=== PATIENT | male | born 1985 ===

== ENCOUNTER 2018-12-21 01:09 | Inpatient (IN) | payer SELFPAY ==
[2018-12-21] MEDS ORDERED: Ketamine 50 MG/ML (10ML VIAL) ONE ×2 (01:16→02:59)
[2018-12-21] MEDS ORDERED: Adacel (T-DAP) 0.5 ML SYRINGE ONE (01:23)
[2018-12-21 01:25] LABS: #Basophils 0.1 thou/uL (0.0-0.2); #Eosinphils 0.1 thou/uL (0.0-0.7); #Lymphocytes 3.1 thou/uL (1.20-3.40); #Monocytes 0.7 thou/uL (0.11-0.59); #Neutrophils 5.6 thou/uL (1.40-6.50); %Basophils 0.8 % (0.0-1.0); %Eosinophils 0.8 % (0.0-10.0); %Lymphocytes 32.1 % (21.0-51.0); %Monocytes 7.6 % (0.0-10.0); %Neutrophils 58.6 % (42.0-75.0); Hemoglobin 15.8 g/dL (14.0-18.0); Mean Corpuscular Hemoglobin 33.5 pg (27.0-31.0); Mean Corpuscular Volume 98.6 fL (78.0-98.0); Mean Platelet Volume 7.7 fL (7.4-10.4); Platelet Count 239 thou/uL (130-400); Red Blood Cell (RBC) Count 4.72 mill/uL (4.70-6.10); White Blood Cell (WBC) Count 9.5 thou/uL (4.8-10.8)
[2018-12-21 01:45] LABS: ALT (SGPT) 26 U/L (8-55); AST (SGOT) 24 U/L (5-34); Albumin 4.5 g/dL (3.5-5.0); Alkaline Phosphatase 63 U/L (40-150); Anion Gap 17 mmol/L (10-20); BUN (Urea Nitrogen) 11 mg/dL (8.9-20.6); Bilirubin, Total 0.2 mg/dL (0.2-1.2); Calc. Creatinine Clearance 0 mL/min (70-130); Calcium 8.8 mg/dL (7.8-10.44); Carbon Dioxide 18 mmol/L (22-29); Chloride 105 mmol/L (98-107); Estimated GFR-MDRD Greater than 90; Globulin 2.6 g/dL (2.4-3.5); Glucose 103 mg/dL (70-105); Potassium 3.2 mmol/L (3.5-5.1); Protein, Total 7.1 g/dL (6.0-8.3); Sodium 137 mmol/L (136-145)
[2018-12-21 01:46] LABS: Acetaminophen Less than 6.0 mcg/mL (10.0-30.0); Alcohol 299 mg/dL (Less than 10); Lipase 64 U/L (8-78); Salicylate Less than 8.0 mg/dL (15.0-30.0)
[2018-12-21 02:03] LABS: Bilirubin Negative (Negative); Blood, Urine Small (Negative); Clarity CLEAR (Clear); Glucose, Urine (Dipstick) Negative (Negative); Leukocyte Negative (Negative); Nitrite Negative (Negative); Protein, Urine (Dipstick) Negative (Neg-Trace); Urobilinogen 0.2 mg/dL (0.2-1.0); pH, Urine 5.5 (5.0-9.0)
[2018-12-21 02:05] LABS: Pathc Cast-AUWi Flag 0.13 (0-2.49)
[2018-12-21] MEDS ORDERED: Lidocaine 1% w/Epinephrine 1:100K 20 ML VIAL ONE (02:11)
[2018-12-21 02:14] LABS: RBC/HPF None Seen HPF (0-3); Squamous Epithelial 0-3 HPF (0-3); WBC/HPF None Seen HPF (0-3)
[2018-12-21 02:15] LABS: Bacteria/HPF None Seen HPF (None Seen); Crystals/HPF None Seen HPF (Negative); Hyaline Casts/LPF NONE SEEN LPF (0-3 Hyaline); Renal Epithelial None Seen HPF (0-3); Transitional Epithelial NONE SEEN HPF (0-3); Yeast-All Forms None Seen HPF (None Seen)
[2018-12-21 02:18] LABS: Amphetamine Not Detected (NotDetected); Barbiturates Screen Not Detected (NotDetected); Benzodiazepine Screen Not Detected (NotDetected); Cocaine Metabolite Screen Not Detected (NotDetected); Medtox Control Line Valid? VALID (VALID); Medtox Reader # READER 1; Methadone Not Detected (NotDetected); Methamphetamine Not Detected (NotDetected); Opiate Screen Not Detected (NotDetected); Oxycodone Screen Not Detected (NotDetected); Phencyclidine (PCP) Not Detected (NotDetected); THC/Cannabinoid Screen Not Detected (NotDetected); Tricyclic Screen Not Detected (NotDetected)
[2018-12-21] MEDS ORDERED: Dextrose 50% Abboject 50 ML SYRINGE SLOW IVP PRN (03:03)
[2018-12-21] MEDS ORDERED: Ondansetron PF 4 MG/2 ML Vial IVP PRN (03:03)
[2018-12-21] MEDS ORDERED: Promethazine HCl 25 MG/ML VIAL IM PRN (03:03)
[2018-12-21] MEDS ORDERED: hydrALAZINE 20 MG/ML VIAL SLOW IVP PRN (03:03)
[2018-12-21] MEDS ORDERED: Dextrose 5% in Water 1,000 ML IV PRN (03:03)
[2018-12-21] MEDS ORDERED: Ondansetron ODT 4 MG TAB PO PRN (03:03)
[2018-12-21] MEDS ORDERED: traMADol HCl 50 MG TAB PO PRN (03:11)
[2018-12-21 03:50] VITALS: BMI 29.7
[2018-12-21] MEDS ORDERED: Potassium Phosphate 15 MMOL in Sodium Chloride 0.9% 250 ML 250 ML IVPB SCH (04:00)
[2018-12-21] MEDS ORDERED: Multivitamins, Adult 10 ML, Folic Acid 1 MG, Thiamine HCl 100 MG in Dextrose 5 %-0.45 %... IV SCH (04:00)
[2018-12-21] MEDS ORDERED: Acetaminophen 500 MG TAB PO SCH (06:00)
[2018-12-21] MEDS ORDERED: traMADol HCl 50 MG TAB PO SCH (06:00)
--- NOTE | 2018-12-21 07:50 | RAD ---
THREE VIEWS LEFT FOOT: HISTORY: Pain. Trauma. FINDINGS: Lisfranc alignment is maintained. Joint spaces are preserved. No fracture. No cortical irregularit y or periosteal reaction. IMPRESSION: No posttraumatic change. POS: OFF
--- NOTE | 2018-12-21 07:51 | RAD ---
TWO VIEWS LEFT KNEE: HISTORY: Pain, trauma. COMPARISON: None. FINDINGS: Joint space is preserved. No fracture or malalignment. No joint effusion. IMPRESSION: Unremarkable 2 views left knee. POS: OFF
[2018-12-21 08:54] LABS: #Basophils 0.1 thou/uL (0.0-0.2); #Lymphocytes 2.2 thou/uL (1.20-3.40); #Monocytes 0.9 thou/uL (0.11-0.59); #Neutrophils 12.3 thou/uL (1.40-6.50); %Basophils 0.5 % (0.0-1.0); %Eosinophils 0.2 % (0.0-10.0); %Lymphocytes 14.4 % (21.0-51.0); %Monocytes 5.8 % (0.0-10.0); %Neutrophils 79.2 % (42.0-75.0); Hemoglobin 16.3 g/dL (14.0-18.0); Mean Corpuscular HGB CONC 34.3 g/dL (32.0-36.0); Mean Corpuscular Hemoglobin 33.4 pg (27.0-31.0); Mean Corpuscular Volume 97.2 fL (78.0-98.0); Mean Platelet Volume 7.8 fL (7.4-10.4); Platelet Count 253 thou/uL (130-400); RBC Distribution Width 12.1 % (11.5-14.5); Red Blood Cell (RBC) Count 4.88 mill/uL (4.70-6.10); White Blood Cell (WBC) Count 15.5 thou/uL (4.8-10.8)
[2018-12-21] MEDS ORDERED: Famotidine/PF 20 mg/2ml Vial SLOW IVP SCH (09:00)
[2018-12-21 09:16] LABS: Magnesium 2.4 mg/dL (1.6-2.6); Phosphorus 3.6 mg/dL (2.3-4.7)
[2018-12-21 09:17] LABS: Alcohol 146 mg/dL (Less than 10); Anion Gap 15 mmol/L (10-20); BUN (Urea Nitrogen) 8 mg/dL (8.9-20.6); Calc. Creatinine Clearance 171 mL/min (70-130); Carbon Dioxide 21 mmol/L (22-29); Chloride 110 mmol/L (98-107); Estimated GFR-MDRD Greater than 90; Glucose 94 mg/dL (70-105); Sodium 142 mmol/L (136-145)
--- NOTE | 2018-12-21 09:43 | CT ---
HEAD CT NONCONTRAST: INDICATION: Intracranial hemorrhage, fall. FINDINGS: There remains a small volume of extraaxial hemorrhage along the interhemispheric falx without associa kami mass effect or midline shift. No ventriculomegaly. Right frontal scalp contusion/hematoma is pr esent. There is decreased pneumatization of the left mastoid air cells. IMPRESSION: Stable small volume extraaxial hemorrhage along the interhemispheric falx. POS: [facility]
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
[2018-12-21] MEDS ORDERED: ISOVUE-370 76%-LOCM 1 ML ONE (10:54)
--- NOTE | 2018-12-21 11:22 | PRG ---
DATE OF SERVICE: 12/21/2018 I followed up on Mr. Lin's second CT scan of the brain. There is hyperdensity in the interhemispheric fissure. Likely subarachnoid anteriorly and subdural superiorly. The total volume is exceedingly small. It does not appreciably changed between the two scans. I do not think he needs any more scanning. We will see him in the office in 2 to 3 weeks with a followup CT. He does not require neurosurgical intervention. He should refrain from alcohol and drugs. If he gets a headache during physical exertion, he should stop that exertion. He should not use bed rest as a treatment for his head injury, however. Job ID: [id number]
--- NOTE | 2018-12-21 11:29 | PDOC.GSPN ---
Surgery Progress Note: Subj - Subjective Patient reports: no new complaints (Awake and alert, following commands. wants to go home) Surgery Progress Note: Obj - Vital signs Vital signs: Vital Signs - Most Recent Temp Pulse Resp BP Pulse Ox 97.8 F 91 L 12/21/18 04:00 12/21/18 08:00 - Physical Exam General: no distress, other (oriented to person place and time. GCS 15) Cardiovascular: regular rate and rhythm Respiratory: clear to auscultation Abdomen: soft, non tender Surgery Progress Note: Results - Labs Result Diagrams: 12/21/18 08:43 12/21/18 08:43 Lab results: Laboratory Results - last 24 hr 12/21/18 12/21/18 12/21/18 01:17 01:17 01:17 WBC 9.5 RBC 4.72 Hgb 15.8 Hct 46.6 MCV 98.6 H MCH 33.5 H MCHC 34.0 RDW 12.0 Plt Count 239 MPV 7.7 Neutrophils % 58.6 Lymphocytes % 32.1 Monocytes % 7.6 Eosinophils % 0.8 Basophils % 0.8 Neutrophils # 5.6 Lymphocytes # 3.1 Monocytes # 0.7 H Eosinophils # 0.1 Basophils # 0.1 Sodium 137 Potassium 3.2 L Chloride 105 Carbon Dioxide 18 L Anion Gap 17 BUN 11 Creatinine 0.84 Estimated GFR (MDRD) Greater than 90 Glucose 103 Calcium 8.8 Phosphorus Magnesium Total Bilirubin 0.2 AST 24 ALT 26 Alkaline Phosphatase 63 Serum Total Protein 7.1 Albumin 4.5 Globulin 2.6 Albumin/Globulin Ratio 1.7 Lipase 64 Urine Color Urine Clarity Urine pH Ur Specific [place] Urine Protein Urine Glucose (UA) Urine Ketones Urine Blood Urine Nitrite Urine Bilirubin Urine Urobilinogen Ur Leukocyte Esterase Urine RBC Urine WBC Ur Squamous Epith Cells Ur Transition Epith Cell Ur Renal Epithelial Cell Urine Crystals Urine Bacteria Hyaline Casts Urine Yeast Salicylates Less than 8.0 L Urine Opiates Screen Ur Oxycodone Screen Urine Methadone Screen Ur Propoxyphene Screen Acetaminophen Less than 6.0 L Ur Barbiturates Screen Ur Tricyclics Screen Ur Phencyclidine Scrn Ur Amphetamines Screen U Methamphetamines Scrn U Benzodiazepines Scrn U Cocaine Metab Screen U Cannabinoids Screen Drug Screen Comment Plasma Alcohol 299 H 12/21/18 12/21/18 12/21/18 01:50 01:50 08:43 WBC RBC Hgb Hct MCV MCH MCHC RDW Plt Count MPV Neutrophils % Lymphocytes % Monocytes % Eosinophils % Basophils % Neutrophils # Lymphocytes # Monocytes # Eosinophils # Basophils # Sodium Potassium Chloride Carbon Dioxide Anion Gap BUN Creatinine Estimated GFR (MDRD) Glucose Calcium Phosphorus 3.6 Magnesium 2.4 Total Bilirubin AST ALT Alkaline Phosphatase Serum Total Protein Albumin Globulin Albumin/Globulin Ratio Lipase Urine Color YELLOW Urine Clarity CLEAR Urine pH 5.5 Ur Specific [place] 1.010 Urine Protein Negative Urine Glucose (UA) Negative Urine Ketones Negative Urine Blood Small H Urine Nitrite Negative Urine Bilirubin Negative Urine Urobilinogen 0.2 Ur Leukocyte Esterase Negative Urine RBC None Seen Urine WBC None Seen Ur Squamous Epith Cells 0-3 Ur Transition Epith Cell NONE SEEN Ur Renal Epithelial Cell None Seen Urine Crystals None Seen Urine Bacteria None Seen Hyaline Casts NONE SEEN Urine Yeast None Seen Salicylates Urine Opiates Screen Not Detected Ur Oxycodone Screen Not Detected Urine Methadone Screen Not Detected Ur Propoxyphene Screen Not Detected Acetaminophen Ur Barbiturates Screen Not Detected Ur Tricyclics Screen Not Detected Ur Phencyclidine Scrn Not Detected Ur Amphetamines Screen Not Detected U Methamphetamines Scrn Not Detected U Benzodiazepines Scrn Not Detected U Cocaine Metab Screen Not Detected U Cannabinoids Screen Not Detected Drug Screen Comment Plasma Alcohol 12/21/18 12/21/18 08:43 08:43 WBC 15.5 H RBC 4.88 Hgb 16.3 Hct 47.4 MCV 97.2 MCH 33.4 H MCHC 34.3 RDW 12.1 Plt Count 253 MPV 7.8 Neutrophils % 79.2 H Lymphocytes % 14.4 L Monocytes % 5.8 Eosinophils % 0.2 Basophils % 0.5 Neutrophils # 12.3 H Lymphocytes # 2.2 Monocytes # 0.9 H Eosinophils # 0.0 Basophils # 0.1 Sodium 142 Potassium 4.0 Chloride 110 H Carbon Dioxide 21 L Anion Gap 15 BUN 8 L Creatinine 0.78 Estimated GFR (MDRD) Greater than 90 Glucose 94 Calcium 9.0 Phosphorus Magnesium Total Bilirubin AST ALT Alkaline Phosphatase Serum Total Protein Albumin Globulin Albumin/Globulin Ratio Lipase Urine Color Urine Clarity Urine pH Ur Specific [place] Urine Protein Urine Glucose (UA) Urine Ketones Urine Blood Urine Nitrite Urine Bilirubin Urine Urobilinogen Ur Leukocyte Esterase Urine RBC Urine WBC Ur Squamous Epith Cells Ur Transition Epith Cell Ur Renal Epithelial Cell Urine Crystals Urine Bacteria Hyaline Casts Urine Yeast Salicylates Urine Opiates Screen Ur Oxycodone Screen Urine Methadone Screen Ur Propoxyphene Screen Acetaminophen Ur Barbiturates Screen Ur Tricyclics Screen Ur Phencyclidine Scrn Ur Amphetamines Screen U Methamphetamines Scrn U Benzodiazepines Scrn U Cocaine Metab Screen U Cannabinoids Screen Drug Screen Comment Plasma Alcohol 146 H Surgery Progress Note: A/P - Problem (1) Cerebral contusion Current Visit: Yes Code(s): S06.339A - CONTUS/LAC CEREB, W LOC OF UNSP DURATION, INIT Status: Acute Assessment and Plan: stable on f/u CT head, neurosurg cleared for dc, f/u NS clinic 2 weeks (2) Scalp laceration Current Visit: Yes Status: Acute Assessment and Plan: will need sutures out 5 days
[2018-12-21 11:32] VITALS: TEMP 98.4
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
== END 2018-12-21 11:50 | disposition home or self-care (01) | DRG 84 ==
LOC: ERS 01:09 → EDBD 01:09 → CCU 03:21
PROVIDERS: ADMIT Surgery; ATTEND Surgery
DX: S06.6X9A Traumatic subarachnoid hemorrhage with loss of consciousness of unspecified duration, initial encounter (principal); S01.81XA Laceration without foreign body of other part of head, initial encounter; V03.90XA Pedestrian on foot injured in collision with car, pick-up truck or van, unspecified whether traffic or nontraffic accident, initial encounter; F10.129 Alcohol abuse with intoxication, unspecified; F19.10 Other psychoactive substance abuse, uncomplicated; Y90.8 Blood alcohol level of 240 mg/100 ml or more; S01.01XA Laceration without foreign body of scalp, initial encounter; E87.6 Hypokalemia; R40.2410 Glasgow coma scale score 13-15, unspecified time
CPT/HCPCS: 36415; 70450; 70486; 71260; 72125; 74177; 80053; 80306; 80307; 81003; 81015; 83690; 83735; 84100; 85025; 90715; 94760; G0390; J2001; J3411; J7042; J7050; S0028